=== PATIENT | female | born 1945 | race African-American/Black ===

== ENCOUNTER 2018-09-30 19:38 | Inpatient (IN) | payer MEDICARE ==
[~2018-09-30] VITALS: Ht 154.9 cm; Wt 104.4 kg
[2018-09-30] MEDS ORDERED: IV NORMAL SALINE 500ML BAG 500 ML IV SCH (20:15)
[2018-09-30 20:47] LABS: BASO % 0 % (0-3); EOS % 1 % (0-3); HEMATOCRIT 21.8 % (36.0-47.0); LYMPH # 0.7 x10^3/uL (1.0-4.8); LYMPH % 17 % (24-48); MEAN CORPUSCULAR HEMOGLOBIN 25 pg (25-35); MEAN CORPUSCULAR HGB CONC 32 g/dL (31-37); MEAN CORPUSCULAR VOLUME 79 fL (79-100); MONO # 0.3 x10^3/uL (0.0-1.1); MONO % 7 % (0-9); NEUT # 3.1 x10^3uL (1.8-7.7); NEUT % 75 % (31-73); PLATELET COUNT 191 x10^3/uL (140-400); RED BLOOD COUNT 2.75 x10^6/uL (3.50-5.40); RED CELL DISTRIBUTION WIDTH 17.4 % (11.5-14.5); WHITE BLOOD COUNT 4.2 x10^3/uL (4.0-11.0)
[2018-09-30 20:56] LABS: ALBUMIN 1.9 g/dL (3.4-5.0); ALBUMIN/GLOBULIN RATIO 0.6 (1.0-1.7); CALCIUM 6.2 mg/dL (8.5-10.1); GFR 66.1; HEMOGLOBIN 6.9 g/dL (12.0-15.5); MAGNESIUM 1.7 mg/dL (1.8-2.4); TOTAL BILIRUBIN 0.2 mg/dL (0.2-1.0)
[2018-09-30 20:58] LABS: POTASSIUM 2.6 mmol/L (3.5-5.1)
[2018-09-30] MEDS ORDERED: MAGNESIUM SULFATE 1GM 100 ML IV ONE (21:30)
[2018-09-30] MEDS ORDERED: POTASSIUM CL 20MEQ D5-0.9%NACL 1,000 ML IV ONE (21:30)
--- NOTE | 2018-09-30 22:08 | PHYS DOC ---
Past Medical History Past Medical History: Anemia, High Cholesterol, Hypertension Past Surgical History: Tonsillectomy Alcohol Use: None Drug Use: None Adult General Chief Complaint Chief Complaint: NEAR SYNCOPE HPI HPI Patient is a 73-year-old female who presents via EMS after reportedly having had syncopal episode while at [employer]. Patient states that she had been feeling hot all over and then became very dizzy and the next thing she knew she was surrounded by a lot of people in her worship. She denies having had any chest pain or shortness of breath. She denies any nausea, vomiting or diaphoresis. She states symptoms have pretty much resolved at this time. Review of Systems Review of Systems Constitutional: Denies fever or chills [] Respiratory: Denies cough or shortness of breath [] Cardiovascular: No additional information not addressed in HPI [] GI: Denies abdominal pain, nausea, vomiting, bloody stools or diarrhea [] Integument: Denies rash or skin lesions [] Neurologic: Denies headache, focal weakness or sensory changes. Positive syncopal episode. [] All other systems were reviewed and found to be within normal limits, except as documented in this note. Current Medications Current Medications Current Medications Medications (Trade) Dose Ordered Sig/Steve Start Time Stop Time Status Last Admin Dose Admin Magnesium Sulfate/ Dextrose 100 ml @ 100 mls/hr 1X ONCE 09/30/18 21:30 09/30/18 22:29 DC 09/30/18 21:10 100 MLS/HR Ondansetron HCl (Zofran) 4 mg PRN Q8HRS PRN 09/30/18 22:15 10/01/18 22:14 Potassium Chloride/Dextrose/ Sod Cl 1,000 ml @ 75 mls/hr 1X ONCE 09/30/18 21:30 10/01/18 10:49 09/30/18 21:42 75 MLS/HR Sodium Chloride 1,000 ml @ 125 mls/hr Q8H 09/30/18 22:30 10/01/18 22:29 Allergies Allergies Allergies Coded Allergies Type Severity Reaction Last Updated Verified Penicillins Allergy Intermediate 09/30/18 Yes Physical Exam Physical Exam Constitutional: Well developed, well nourished, no acute distress, non-toxic appearance. [] HENT: Normocephalic, atraumatic, bilateral external ears normal, oropharynx moist, no oral exudates, nose normal. [] Eyes: PERRLA, EOMI, conjunctiva normal, no discharge. [] Neck: Normal range of motion, no tenderness, supple, no stridor. [] Cardiovascular: Regular rate and rhythm[] Lungs & Thorax: Bilateral breath sounds clear to auscultation [] Abdomen: Bowel sounds normal, soft, no tenderness. [] Skin: Warm, dry, no erythema, no rash. [] Extremities: No tenderness, no cyanosis, no clubbing, ROM intact, no edema. [] Neurologic: Alert and oriented X 3, no focal deficits noted. [] Current Patient Data Vital Signs Vital Signs Date Time Temp Pulse Resp B/P (MAP) Pulse Ox O2 Delivery O2 Flow Rate FiO2 09/30/18 22:12 76 14 100 09/30/18 19:38 97.7 119/58 (78) Room Air 97.7 Lab Values Laboratory Tests Test 09/30/18 20:35 White Blood Count 4.2 x10^3/uL (4.0-11.0) Red Blood Count 2.75 x10^6/uL (3.50-5.40) L Hemoglobin 6.9 g/dL (12.0-15.5) *L Hematocrit 21.8 % (36.0-47.0) L Mean Corpuscular Volume 79 fL (79-100) Mean Corpuscular Hemoglobin 25 pg (25-35) Mean Corpuscular Hemoglobin Concent 32 g/dL (31-37) Red Cell Distribution Width 17.4 % (11.5-14.5) H Platelet Count 191 x10^3/uL (140-400) Neutrophils (%) (Auto) 75 % (31-73) H Lymphocytes (%) (Auto) 17 % (24-48) L Monocytes (%) (Auto) 7 % (0-9) Eosinophils (%) (Auto) 1 % (0-3) Basophils (%) (Auto) 0 % (0-3) Neutrophils # (Auto) 3.1 x10^3uL (1.8-7.7) Lymphocytes # (Auto) 0.7 x10^3/uL (1.0-4.8) L Monocytes # (Auto) 0.3 x10^3/uL (0.0-1.1) Eosinophils # (Auto) 0.0 x10^3/uL (0.0-0.7) Basophils # (Auto) 0.0 x10^3/uL (0.0-0.2) Sodium Level 147 mmol/L (136-145) H Potassium Level 2.6 mmol/L (3.5-5.1) *L Chloride Level 116 mmol/L (98-107) H Carbon Dioxide Level 20 mmol/L (21-32) L Anion Gap 11 (6-14) Blood Urea Nitrogen 21 mg/dL (7-20) H Creatinine 1.0 mg/dL (0.6-1.0) Estimated GFR (Cockcroft-Gault) 66.1 BUN/Creatinine Ratio 21 (6-20) H Glucose Level 77 mg/dL (70-99) Calcium Level 6.2 mg/dL (8.5-10.1) L Magnesium Level 1.7 mg/dL (1.8-2.4) L Total Bilirubin 0.2 mg/dL (0.2-1.0) Aspartate Amino Transferase (AST) 16 U/L (15-37) Alanine Aminotransferase (ALT) 11 U/L (14-59) L Alkaline Phosphatase 57 U/L (46-116) Total Protein 5.0 g/dL (6.4-8.2) L Albumin 1.9 g/dL (3.4-5.0) L Albumin/Globulin Ratio 0.6 (1.0-1.7) L Laboratory Tests 09/30/18 20:35 Laboratory Tests 09/30/18 20:35 EKG EKG [] Interpretation Time: EKG demonstrates normal sinus rhythm with rate of 76. Radiology/Procedures Radiology/Procedures [] Course & Med Decision Making Course & Med Decision Making Pertinent Labs and Imaging studies reviewed. (See chart for details) [] Dragon Disclaimer Dragon Disclaimer This electronic medical record was generated, in whole or in part, using a voice recognition dictation system. Departure Departure Impression: Primary Impression: Acute anemia Additional Impressions: Hypokalemia Syncope Disposition: ADMITTED INPATIENT Admitting Physician: Tamela Hagen Condition: IMPROVED Referrals: LAYLA HOGAN (PCP) Problem Qualifiers Additional Impressions: Syncope Syncope type: vasovagal syncope Qualified Codes: R55 - Syncope and collapse JOVI WOODALL Jr. DO Sep 30, 2018 22:08
[2018-09-30] MEDS ORDERED: ONDANSETRON PF 4 MG/2 ML VIAL. IV PRN (22:15)
[2018-09-30] MEDS: IV NORMAL SALINE 1000ML BAG 1,000 ML IV SCH (22:30)
[2018-09-30] MEDS ORDERED: POTASSIUM CHLORIDE 20 MEQ TABLET.ER. PO ONE (23:00)
--- NOTE | 2018-09-30 23:20 | PDOC1 ---
History and Physical Date of Admission Date of Admission DATE: 09/30/18 TIME: 23:20 Source Source: Chart review, Patient History of Present Illness History of Present Illness Ms. Rose, is a 73-year-old female admit from ER after a syncopal episode while at [employer]. Patient states that she had been feeling hot all over (it was too hot in the [employer]) and then she awoke to people standing over her. She reportedly slumped in her chair, but did not fall, no injury, no new pain. She had been feeling well, no pain or dyspnea, had been very active as usual. She denies any nausea, vomiting or diaphoresis. She states symptoms have pretty much resolved at this time, she is hoping to go home soon. her primary care is at [facility] Past Medical History Cardiovascular: HTN GI: No pertinent hx Heme/Onc: No pertinent hx Hepatobiliary: No pertinent hx Past Surgical History Past Surgical History: No pertinent history Family History Family History: Hypertension Social History Smoke: No ALCOHOL: none Current Problem List Problem List Problems Medical Problems: (1) Acute anemia Status: Acute (2) Hypokalemia Status: Acute (3) Syncope Status: Acute Current Medications Current Medications Current Medications Sodium Chloride 500 ml @ 500 mls/hr Q1H IV Last administered on 09/30/18at 20: 16; Start 09/30/18 at 20:15; Stop 09/30/18 at 20:17; Status DC Potassium Chloride/Dextrose/ Sod Cl 1,000 ml @ 75 mls/hr 1X ONCE IV Last administered on 09/30/18at 21:42; Start 09/30/18 at 21:30; Stop 10/01/18 at 10:49 Magnesium Sulfate/ Dextrose 100 ml @ 100 mls/hr 1X ONCE IV Last administered on 09/30/18at 21:10; Start 09/30/18 at 21:30; Stop 09/30/18 at 22:29; Status DC Ondansetron HCl (Zofran) 4 mg PRN Q8HRS PRN IV NAUSEA/VOMITING 1ST CHOICE; Start 09/30/18 at 22:15; Stop 10/01/18 at 22:14 Sodium Chloride 1,000 ml @ 125 mls/hr Q8H IV ; Start 09/30/18 at 22:30; Stop at 22:29 Potassium Chloride (Klor-Con) 40 meq 1X ONCE PO ; Start 09/30/18 at 23:00; Stop 09/30/18 at 23:01; Status DC Allergies Allergies: Coded Allergies: Penicillins (Verified Allergy, Intermediate, 09/30/18) ROS General: YES: Other (felt hot today); No: Chills, Night Sweats, Fatigue, Malaise, Appetite PSYCHOLOGICAL ROS: No: Anxiety, Behavioral Disorder, Concentration difficultie , Decreased libido, Depression, Disorientation, Hallucinations, Hostility, Irritablity, Memory difficulties, Mood Swings, Obsessive thoughts, Physical abuse, Sexual abuse, Sleep disturbances, Suicidal ideation, Other Eyes: No Blurry vision, No Decreased vision, No Double vision, No Dry eyes, No Excessive tearing, No Eye Pain, No Itchy Eyes, No Loss of vision, No Photophobia , No Scotomata, No Uses contacts, No Uses glasses, No Other HEENT: No: Heacaches, Visual Changes, Hearing change, Nasal congestion, Nasal discharge, Oral lesions, Sinus pain, Sore Throat, Epistaxis, Sneezing, Snoring, Tinnitus, Vertigo, Vocal changes, Other Respiratory: No: Cough, Hemoptysis, Orthopnea, Pleuritic Pain, Shortness of breath, SOB with excertion, Sputum Changes, Stridor, Tachypnea, Wheezing, Other Cardiovascular: No Chest Pain, No Palpitations, No Orthopnea, No Paroxysmal Noc. Dyspnea, No Edema, No Lt Headedness, No Other Gastrointestinal: No Nausea, No Vomiting, No Abdominal Pain, No Diarrhea, No Constipation, No Melena, No Hematochezia, No Other Genitourinary: No Dysuria, No Frequency, No Incontinence, No Hematuria, No Retention, No Discharge, No Urgency, No Pain, No Flank Pain, No Other, No , No , No , No , No , No , No Musculoskeletal: No Gait Disturbance, No Joint Pain, No Joint Stiffness, No Joint Swelling, No Muscle Pain, No Muscular Weakness, No Pain In:, No Swelling In:, No Other Neurological: No Behavorial Changes, No Bowel/Bladder ControlChng, No Confusion , No Dizziness, No Gait Disturbance, No Headaches, No Impaired Coord/balance, No Memory Loss, No Numbness/Tingling, No Seizures, No Speech Problems, No Tremors, No Visual Changes, No Weakness, No Other Skin: Yes Dry Skin; No Eczema, No Hair Changes, No Lumps, No Mole Changes, No Mottling, No Nail Changes, No Pruritus, No Rash, No Skin Lesion Changes, No Other, No Acne Physical Exam General: Alert, Oriented X3, Cooperative, No acute distress HEENT: Atraumatic, PERRLA, EOMI, Mucous membr. moist/pink Lungs: Clear to auscultation, Normal air movement Heart: S1S2, no murmurs Abdomen: Soft Extremities: No clubbing, No edema, Normal pulses Skin: No rashes, No breakdown, No significant lesion Neuro: Normal speech, Normal tone, Sensation intact Psych/Mental Status: Mental status NL, Mood NL Vitals Vitals Vital Signs Date Time Temp Pulse Resp B/P (MAP) Pulse Ox O2 Delivery O2 Flow Rate FiO2 09/30/18 22:12 76 14 100 09/30/18 19:38 97.7 119/58 (78) Room Air 97.7 Labs Labs Laboratory Tests Test 09/30/18 20:35 White Blood Count 4.2 x10^3/uL (4.0-11.0) Red Blood Count 2.75 x10^6/uL (3.50-5.40) Hemoglobin 6.9 g/dL (12.0-15.5) Hematocrit 21.8 % (36.0-47.0) Mean Corpuscular Volume 79 fL (79-100) Mean Corpuscular Hemoglobin 25 pg (25-35) Mean Corpuscular Hemoglobin Concent 32 g/dL (31-37) Red Cell Distribution Width 17.4 % (11.5-14.5) Platelet Count 191 x10^3/uL (140-400) Neutrophils (%) (Auto) 75 % (31-73) Lymphocytes (%) (Auto) 17 % (24-48) Monocytes (%) (Auto) 7 % (0-9) Eosinophils (%) (Auto) 1 % (0-3) Basophils (%) (Auto) 0 % (0-3) Neutrophils # (Auto) 3.1 x10^3uL (1.8-7.7) Lymphocytes # (Auto) 0.7 x10^3/uL (1.0-4.8) Monocytes # (Auto) 0.3 x10^3/uL (0.0-1.1) Eosinophils # (Auto) 0.0 x10^3/uL (0.0-0.7) Basophils # (Auto) 0.0 x10^3/uL (0.0-0.2) Sodium Level 147 mmol/L (136-145) Potassium Level 2.6 mmol/L (3.5-5.1) Chloride Level 116 mmol/L (98-107) Carbon Dioxide Level 20 mmol/L (21-32) Anion Gap 11 (6-14) Blood Urea Nitrogen 21 mg/dL (7-20) Creatinine 1.0 mg/dL (0.6-1.0) Estimated GFR (Cockcroft-Gault) 66.1 BUN/Creatinine Ratio 21 (6-20) Glucose Level 77 mg/dL (70-99) Calcium Level 6.2 mg/dL (8.5-10.1) Magnesium Level 1.7 mg/dL (1.8-2.4) Total Bilirubin 0.2 mg/dL (0.2-1.0) Aspartate Amino Transf (AST/SGOT) 16 U/L (15-37) Alanine Aminotransferase (ALT/SGPT) 11 U/L (14-59) Alkaline Phosphatase 57 U/L (46-116) Total Protein 5.0 g/dL (6.4-8.2) Albumin 1.9 g/dL (3.4-5.0) Albumin/Globulin Ratio 0.6 (1.0-1.7) Laboratory Tests Test 09/30/18 20:35 White Blood Count 4.2 x10^3/uL (4.0-11.0) Red Blood Count 2.75 x10^6/uL (3.50-5.40) Hemoglobin 6.9 g/dL (12.0-15.5) Hematocrit 21.8 % (36.0-47.0) Mean Corpuscular Volume 79 fL (79-100) Mean Corpuscular Hemoglobin 25 pg (25-35) Mean Corpuscular Hemoglobin Concent 32 g/dL (31-37) Red Cell Distribution Width 17.4 % (11.5-14.5) Platelet Count 191 x10^3/uL (140-400) Neutrophils (%) (Auto) 75 % (31-73) Lymphocytes (%) (Auto) 17 % (24-48) Monocytes (%) (Auto) 7 % (0-9) Eosinophils (%) (Auto) 1 % (0-3) Basophils (%) (Auto) 0 % (0-3) Neutrophils # (Auto) 3.1 x10^3uL (1.8-7.7) Lymphocytes # (Auto) 0.7 x10^3/uL (1.0-4.8) Monocytes # (Auto) 0.3 x10^3/uL (0.0-1.1) Eosinophils # (Auto) 0.0 x10^3/uL (0.0-0.7) Basophils # (Auto) 0.0 x10^3/uL (0.0-0.2) Sodium Level 147 mmol/L (136-145) Potassium Level 2.6 mmol/L (3.5-5.1) Chloride Level 116 mmol/L (98-107) Carbon Dioxide Level 20 mmol/L (21-32) Anion Gap 11 (6-14) Blood Urea Nitrogen 21 mg/dL (7-20) Creatinine 1.0 mg/dL (0.6-1.0) Estimated GFR (Cockcroft-Gault) 66.1 BUN/Creatinine Ratio 21 (6-20) Glucose Level 77 mg/dL (70-99) Calcium Level 6.2 mg/dL (8.5-10.1) Magnesium Level 1.7 mg/dL (1.8-2.4) Total Bilirubin 0.2 mg/dL (0.2-1.0) Aspartate Amino Transf (AST/SGOT) 16 U/L (15-37) Alanine Aminotransferase (ALT/SGPT) 11 U/L (14-59) Alkaline Phosphatase 57 U/L (46-116) Total Protein 5.0 g/dL (6.4-8.2) Albumin 1.9 g/dL (3.4-5.0) Albumin/Globulin Ratio 0.6 (1.0-1.7) VTE Prophylaxis Ordered VTE Prophylaxis Devices: No VTE Pharmacological Prophylaxi: Yes Assessment/Plan Assessment/Plan syncope while seated, no fall anemia, poss symptomatic, check retic count and iron in AM, type and cross critical hypokalemia, PO and repeat in AM replace Mag obesity, BMI 43, with severe malnutrition, check nutrition consult, check UA for protein, admit obs, stephenie, HECTOR BRIDGES MD Sep 30, 2018 23:20
[2018-09-30] MEDS ORDERED: MAGNESIUM SULFATE 2GM 50 ML IV ONE (23:45)
[2018-09-30 23:55] VITALS: BP 130/64
[2018-10-01] VITALS (7 sets, daily range): BP systolic 121–149; BP diastolic 49–65
--- NOTE | 2018-10-01 02:05 | NUR ---
Pt unable to tell the names of the medication she is currently taking, she also get them mailed to her house. Pt gave her doctor's office phone number to call in the morning to get the list from them, phone number [phone].
--- NOTE | 2018-10-01 04:24 | NUR ---
Verified order around 0100 regarding pt hgb, to Dr. Hagen, no blood transfusion at this time ordered, will continue to monitor pt.
--- NOTE | 2018-10-01 06:19 | EKG ---
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
[2018-10-01] MEDS: IV NORMAL SALINE 1000ML BAG 1,000 ML IV SCH (06:30)
[2018-10-01] MEDS ORDERED: POTASSIUM CHLORIDE 20 MEQ TABLET.ER. PO SCH ×2 (08:00)
[2018-10-01 08:01] LABS: BILIRUBIN,URINE NEGATIVE (NEG); CLARITY,URINE CLEAR; COLOR,URINE YELLOW; NITRITE,URINE NEGATIVE (NEG); PROTEIN,URINE NEGATIVE (NEG-TRACE); UROBILINOGEN,URINE 0.2 mg/dL (0.2 mg/dL)
[2018-10-01 08:21] LABS: SQUAMOUS EPITHELIAL CELL,UR MOD /LPF
[2018-10-01 08:22] LABS: BACTERIA,URINE MANY /HPF (0-FEW); HYALINE CASTS, URINE FEW /HPF; RBC,URINE OCC /HPF (0-2)
[2018-10-01 09:27] LABS: BASO % 0 % (0-3); EOS # 0.1 x10^3/uL (0.0-0.7); EOS % 1 % (0-3); LYMPH # 1.4 x10^3/uL (1.0-4.8); LYMPH % 24 % (24-48); MEAN CORPUSCULAR HEMOGLOBIN 24 pg (25-35); MEAN CORPUSCULAR HGB CONC 31 g/dL (31-37); MEAN CORPUSCULAR VOLUME 78 fL (79-100); MONO # 0.4 x10^3/uL (0.0-1.1); MONO % 7 % (0-9); NEUT % 69 % (31-73); PLATELET COUNT 315 x10^3/uL (140-400); RED BLOOD COUNT 4.33 x10^6/uL (3.50-5.40); RED CELL DISTRIBUTION WIDTH 17.4 % (11.5-14.5); RETIC COUNT 0.9 % (0.5-2.5); WHITE BLOOD COUNT 5.8 x10^3/uL (4.0-11.0)
[2018-10-01 09:33] LABS: HEMOGLOBIN 10.5 g/dL (12.0-15.5)
[2018-10-01 10:43] LABS: CALCIUM 8.6 mg/dL (8.5-10.1); CREATININE 1.4 mg/dL (0.6-1.0); GFR 44.9
[2018-10-01 11:21] LABS: MAGNESIUM 3.1 mg/dL (1.8-2.4)
--- NOTE | 2018-10-01 11:40 | PDOC2 ---
KRYSTIN MICHEL LPN MEDICAL ASSISTANT 10/01/18 1140: CARDIAC CONSULT DATE OF CONSULT Date of Consult DATE: 10/01/18 TIME: 11:13 REASON FOR CONSULT Reason for Consult: syncope, hypokalemia REFERRING PHYSICIAN Referring Physician: Hieu SOURCE Source: Chart review, Patient HISTORY OF PRESENT ILLNESS HISTORY OF PRESENT ILLNESS This is a pleasant 73 yo female admitted for complains of passing out. She took her BP meds yesterday AM. SHe did not drink much fluids yesterday. She attended [employer] yesterday evening. She was sitting then she started having blurred vision. No chest pain, nausea, palpitations, vertigo, tinnitus. She finally leaned to the side she was told and passed out and the next thing she remembered is waking up with people looking at her. No vomiting or flushed feeling. Denies any prior exertional CP or SOA. No changes to her activity tolerance. She does take iron and has dark stools but no obvious blood. Denies any hx of CAD nor arrhythmias and no prior syncopal spells. She has hiatal hernia due to for surgery in october. PAST MEDICAL HISTORY Cardiovascular: HTN, Hyperlipidemia Pulmonary: Asthma CENTRAL NERVOUS SYSTEM: Other (No pertinent history) GI: GERD, Other (hiatal hernia; colon polyps) Heme/Onc: Anemia NOS Hepatobiliary: No pertinent hx Psych: No pertinent hx Musculoskeletal: Osteoarthritis Rheumatologic: No pertinent hx Infectious disease: No pertinent hx ENT: No pertinent hx Renal/: No pertinent hx Endocrine: No pertinent hx Dermatology: No pertinent hx FAMILY HISTORY Family History: Hypertension SOCIAL HISTORY Smoke: No ALCOHOL: none Drugs: None Lives: with Family CURRENT MEDICATIONS CURRENT MEDICATIONS Current Medications Medications (Trade) Dose Ordered Sig/Steve Route PRN Reason Start Time Stop Time Status Last Admin Dose Admin Sodium Chloride 500 ml @ 500 mls/hr Q1H IV 09/30/18 20:15 09/30/18 20:17 DC 09/30/18 20:16 Potassium Chloride/Dextrose/ Sod Cl 1,000 ml @ 75 mls/hr 1X ONCE IV 09/30/18 21:30 10/01/18 10:49 DC 09/30/18 21:42 Magnesium Sulfate/ Dextrose 100 ml @ 100 mls/hr 1X ONCE IV 09/30/18 21:30 09/30/18 22:29 DC 09/30/18 21:10 Potassium Chloride (Klor-Con) 40 meq 1X ONCE PO 09/30/18 23:00 09/30/18 23:01 DC 10/01/18 01:11 Magnesium Sulfate 50 ml @ 25 mls/hr 1X ONCE IV 09/30/18 23:45 10/01/18 01:44 DC 10/01/18 01:31 Potassium Chloride (Klor-Con) 40 meq DAILYWBKFT PO 10/01/18 08:00 10/01/18 08:36 ALLERGIES ALLERGIES: Coded Allergies: Penicillins (Verified Allergy, Intermediate, 09/30/18) ROS Review of System 14 point ROS evaluated with pertinent positives noted per HPI PHYSICAL EXAM General: Alert, Oriented X3, Cooperative, No acute distress HEENT: Atraumatic, Mucous membr. moist/pink Lungs: Clear to auscultation, Normal air movement Heart: Regular rate (SR), Normal S1, Normal S2, Other (2/6 systolic murmur to PEGGY border) Abdomen: Soft, No tenderness Extremities: No cyanosis, No edema Skin: No breakdown, No significant lesion Neuro: Normal speech, Sensation intact Psych/Mental Status: Mental status NL, Mood NL MUSCULOSKELETAL: Osteoarthritic changes both hands VITALS VITALS Vital Signs Date Time Temp Pulse Resp B/P (MAP) Pulse Ox O2 Delivery O2 Flow Rate FiO2 10/01/18 08:00 Room Air 10/01/18 07:15 98.2 73 20 125/50 (75) 96 98.2 LABS Lab: Laboratory Tests Test 09/30/18 20:35 10/01/18 06:24 10/01/18 07:22 10/01/18 08:45 White Blood Count 4.2 x10^3/uL (4.0-11.0) 5.8 x10^3/uL (4.0-11.0) Red Blood Count 2.75 x10^6/uL (3.50-5.40) 4.33 x10^6/uL (3.50-5.40) Hemoglobin 6.9 g/dL (12.0-15.5) 10.5 g/dL (12.0-15.5) Hematocrit 21.8 % (36.0-47.0) 34.0 % (36.0-47.0) Mean Corpuscular Volume 79 fL (79-100) 78 fL (79-100) Mean Corpuscular Hemoglobin 25 pg (25-35) 24 pg (25-35) Mean Corpuscular Hemoglobin Concent 32 g/dL (31-37) 31 g/dL (31-37) Red Cell Distribution Width 17.4 % (11.5-14.5) 17.4 % (11.5-14.5) Platelet Count 191 x10^3/uL (140-400) 315 x10^3/uL (140-400) Neutrophils (%) (Auto) 75 % (31-73) 69 % (31-73) Lymphocytes (%) (Auto) 17 % (24-48) 24 % (24-48) Monocytes (%) (Auto) 7 % (0-9) 7 % (0-9) Eosinophils (%) (Auto) 1 % (0-3) 1 % (0-3) Basophils (%) (Auto) 0 % (0-3) 0 % (0-3) Neutrophils # (Auto) 3.1 x10^3uL (1.8-7.7) 4.0 x10^3uL (1.8-7.7) Lymphocytes # (Auto) 0.7 x10^3/uL (1.0-4.8) 1.4 x10^3/uL (1.0-4.8) Monocytes # (Auto) 0.3 x10^3/uL (0.0-1.1) 0.4 x10^3/uL (0.0-1.1) Eosinophils # (Auto) 0.0 x10^3/uL (0.0-0.7) 0.1 x10^3/uL (0.0-0.7) Basophils # (Auto) 0.0 x10^3/uL (0.0-0.2) 0.0 x10^3/uL (0.0-0.2) Sodium Level 147 mmol/L (136-145) 143 mmol/L (136-145) Potassium Level 2.6 mmol/L (3.5-5.1) 5.0 mmol/L (3.5-5.1) Chloride Level 116 mmol/L (98-107) 109 mmol/L (98-107) Carbon Dioxide Level 20 mmol/L (21-32) 24 mmol/L (21-32) Anion Gap 11 (6-14) 10 (6-14) Blood Urea Nitrogen 21 mg/dL (7-20) 27 mg/dL (7-20) Creatinine 1.0 mg/dL (0.6-1.0) 1.4 mg/dL (0.6-1.0) Estimated GFR (Cockcroft-Gault) 66.1 44.9 BUN/Creatinine Ratio 21 (6-20) Glucose Level 77 mg/dL (70-99) 106 mg/dL (70-99) Calcium Level 6.2 mg/dL (8.5-10.1) 8.6 mg/dL (8.5-10.1) Magnesium Level 1.7 mg/dL (1.8-2.4) Total Bilirubin 0.2 mg/dL (0.2-1.0) Aspartate Amino Transf (AST/SGOT) 16 U/L (15-37) Alanine Aminotransferase (ALT/SGPT) 11 U/L (14-59) Alkaline Phosphatase 57 U/L (46-116) Total Protein 5.0 g/dL (6.4-8.2) Albumin 1.9 g/dL (3.4-5.0) Albumin/Globulin Ratio 0.6 (1.0-1.7) Urine Collection Type Unknown Urine Color Yellow Urine Clarity Clear Urine pH 5.0 Urine Specific [place] 1.025 Urine Protein Negative mg/dL (NEG-TRACE) Urine Glucose (UA) Negative mg/dL (NEG) Urine Ketones (Stick) Negative mg/dL (NEG) Urine Blood Negative (NEG) Urine Nitrite Negative (NEG) Urine Bilirubin Negative (NEG) Urine Urobilinogen Dipstick 0.2 mg/dL (0.2 mg/dL) Urine Leukocyte Esterase Small (NEG) Urine RBC Occ /HPF (0-2) Urine WBC 1-4 /HPF (0-4) Urine Squamous Epithelial Cells Mod /LPF Urine Bacteria Many /HPF (0-FEW) Urine Hyaline Casts Few /HPF Urine Mucus Marked /LPF Ionized Calcium 1.19 mmol/L (1.13-1.32) Iron Level 37 ug/dL (50-170) Total Iron Binding Capacity 240 ug/dL (250-450) Iron Saturation 15 % (15-34) Reticulocyte Count (auto) 0.9 % (0.5-2.5) ASSESSMENT/PLAN ASSESSMENT/PLAN 1. Microcytic anemia: false initial Hgb at 6.9, redraw noted at 10.5 without transfusion 2. Hypokalemia/hypocalcemia/hypomagnesemia: corrected 3. LETY: dehydration 4. Syncope: suspect vasovagal with associated. No past Hx. 5. Morbid obesity 6. HTN: controlled 7. HLP 8. Hx of colonoscopy and polypectomy in 06/2018 Recommendations 1. TTE, IVF 2. Orthostatic readings. no rhythm abnormalities. Await echo, continue home BP regimen. encouraged hydration adequacy. CHRISTIE BONNER MD 10/01/18 5107: CARDIAC CONSULT ASSESSMENT/PLAN ASSESSMENT/PLAN Pt. seen and examined. Agree with above Assistant Accounting Manager note. 73 y.o with vasovagal syncope, She was clearly hot and dehydrated. Supportive care. Ok to DC. Pls call with questions. KRYSTIN MICHEL APRN Oct 01, 2018 11:40 CHRISTIE BONNER MD Oct 01, 2018 23:07
[2018-10-01] MEDS ORDERED: IV NORMAL SALINE 1000ML BAG 1,000 ML IV ONE (11:45)
--- NOTE | 2018-10-01 14:48 | PDOC3 ---
Discharge Summary Visit Information Date of Admission: Sep 30, 2018 Date of Discharge: Oct 01, 2018 Final Diagnosis syncope lab error, thought to have critical hypokalemia and anemia obesity, BMI 43 CKD 2-3 htn Problems Medical Problems: (1) Acute anemia Status: Acute (2) Hypokalemia Status: Acute (3) Syncope Status: Acute Brief Hospital Course Allergies Allergies Coded Allergies Type Severity Reaction Last Updated Verified Penicillins Allergy Intermediate 09/30/18 Yes Vital Signs Vital Signs Date Time Temp Pulse Resp B/P (MAP) Pulse Ox O2 Delivery O2 Flow Rate FiO2 10/01/18 12:03 78 149/63 (91) 10/01/18 11:12 18 96 Room Air 10/01/18 07:15 98.2 98.2 Lab Results Laboratory Tests Test 09/30/18 20:35 10/01/18 06:24 10/01/18 07:22 10/01/18 08:45 White Blood Count 4.2 x10^3/uL (4.0-11.0) 5.8 x10^3/uL (4.0-11.0) Red Blood Count 2.75 x10^6/uL (3.50-5.40) 4.33 x10^6/uL (3.50-5.40) Hemoglobin 6.9 g/dL (12.0-15.5) 10.5 g/dL (12.0-15.5) Hematocrit 21.8 % (36.0-47.0) 34.0 % (36.0-47.0) Mean Corpuscular Volume 79 fL (79-100) 78 fL (79-100) Mean Corpuscular Hemoglobin 25 pg (25-35) 24 pg (25-35) Mean Corpuscular Hemoglobin Concent 32 g/dL (31-37) 31 g/dL (31-37) Red Cell Distribution Width 17.4 % (11.5-14.5) 17.4 % (11.5-14.5) Platelet Count 191 x10^3/uL (140-400) 315 x10^3/uL (140-400) Neutrophils (%) (Auto) 75 % (31-73) 69 % (31-73) Lymphocytes (%) (Auto) 17 % (24-48) 24 % (24-48) Monocytes (%) (Auto) 7 % (0-9) 7 % (0-9) Eosinophils (%) (Auto) 1 % (0-3) 1 % (0-3) Basophils (%) (Auto) 0 % (0-3) 0 % (0-3) Neutrophils # (Auto) 3.1 x10^3uL (1.8-7.7) 4.0 x10^3uL (1.8-7.7) Lymphocytes # (Auto) 0.7 x10^3/uL (1.0-4.8) 1.4 x10^3/uL (1.0-4.8) Monocytes # (Auto) 0.3 x10^3/uL (0.0-1.1) 0.4 x10^3/uL (0.0-1.1) Eosinophils # (Auto) 0.0 x10^3/uL (0.0-0.7) 0.1 x10^3/uL (0.0-0.7) Basophils # (Auto) 0.0 x10^3/uL (0.0-0.2) 0.0 x10^3/uL (0.0-0.2) Sodium Level 147 mmol/L (136-145) 143 mmol/L (136-145) Potassium Level 2.6 mmol/L (3.5-5.1) 5.0 mmol/L (3.5-5.1) Chloride Level 116 mmol/L (98-107) 109 mmol/L (98-107) Carbon Dioxide Level 20 mmol/L (21-32) 24 mmol/L (21-32) Anion Gap 11 (6-14) 10 (6-14) Blood Urea Nitrogen 21 mg/dL (7-20) 27 mg/dL (7-20) Creatinine 1.0 mg/dL (0.6-1.0) 1.4 mg/dL (0.6-1.0) Estimated GFR (Cockcroft-Gault) 66.1 44.9 BUN/Creatinine Ratio 21 (6-20) Glucose Level 77 mg/dL (70-99) 106 mg/dL (70-99) Calcium Level 6.2 mg/dL (8.5-10.1) 8.6 mg/dL (8.5-10.1) Magnesium Level 1.7 mg/dL (1.8-2.4) 3.1 mg/dL (1.8-2.4) Total Bilirubin 0.2 mg/dL (0.2-1.0) Aspartate Amino Transf (AST/SGOT) 16 U/L (15-37) Alanine Aminotransferase (ALT/SGPT) 11 U/L (14-59) Alkaline Phosphatase 57 U/L (46-116) Total Protein 5.0 g/dL (6.4-8.2) Albumin 1.9 g/dL (3.4-5.0) Albumin/Globulin Ratio 0.6 (1.0-1.7) Urine Collection Type Unknown Urine Color Yellow Urine Clarity Clear Urine pH 5.0 Urine Specific [place] 1.025 Urine Protein Negative mg/dL (NEG-TRACE) Urine Glucose (UA) Negative mg/dL (NEG) Urine Ketones (Stick) Negative mg/dL (NEG) Urine Blood Negative (NEG) Urine Nitrite Negative (NEG) Urine Bilirubin Negative (NEG) Urine Urobilinogen Dipstick 0.2 mg/dL (0.2 mg/dL) Urine Leukocyte Esterase Small (NEG) Urine RBC Occ /HPF (0-2) Urine WBC 1-4 /HPF (0-4) Urine Squamous Epithelial Cells Mod /LPF Urine Bacteria Many /HPF (0-FEW) Urine Hyaline Casts Few /HPF Urine Mucus Marked /LPF Urine Random Total Protein 11.1 mg/dL (Not Estab.) Ionized Calcium 1.19 mmol/L (1.13-1.32) Iron Level 37 ug/dL (50-170) Total Iron Binding Capacity 240 ug/dL (250-450) Iron Saturation 15 % (15-34) Reticulocyte Count (auto) 0.9 % (0.5-2.5) Laboratory Tests Test 09/30/18 20:35 10/01/18 06:24 10/01/18 07:22 10/01/18 08:45 White Blood Count 4.2 x10^3/uL (4.0-11.0) 5.8 x10^3/uL (4.0-11.0) Red Blood Count 2.75 x10^6/uL (3.50-5.40) 4.33 x10^6/uL (3.50-5.40) Hemoglobin 6.9 g/dL (12.0-15.5) 10.5 g/dL (12.0-15.5) Hematocrit 21.8 % (36.0-47.0) 34.0 % (36.0-47.0) Mean Corpuscular Volume 79 fL (79-100) 78 fL (79-100) Mean Corpuscular Hemoglobin 25 pg (25-35) 24 pg (25-35) Mean Corpuscular Hemoglobin Concent 32 g/dL (31-37) 31 g/dL (31-37) Red Cell Distribution Width 17.4 % (11.5-14.5) 17.4 % (11.5-14.5) Platelet Count 191 x10^3/uL (140-400) 315 x10^3/uL (140-400) Neutrophils (%) (Auto) 75 % (31-73) 69 % (31-73) Lymphocytes (%) (Auto) 17 % (24-48) 24 % (24-48) Monocytes (%) (Auto) 7 % (0-9) 7 % (0-9) Eosinophils (%) (Auto) 1 % (0-3) 1 % (0-3) Basophils (%) (Auto) 0 % (0-3) 0 % (0-3) Neutrophils # (Auto) 3.1 x10^3uL (1.8-7.7) 4.0 x10^3uL (1.8-7.7) Lymphocytes # (Auto) 0.7 x10^3/uL (1.0-4.8) 1.4 x10^3/uL (1.0-4.8) Monocytes # (Auto) 0.3 x10^3/uL (0.0-1.1) 0.4 x10^3/uL (0.0-1.1) Eosinophils # (Auto) 0.0 x10^3/uL (0.0-0.7) 0.1 x10^3/uL (0.0-0.7) Basophils # (Auto) 0.0 x10^3/uL (0.0-0.2) 0.0 x10^3/uL (0.0-0.2) Sodium Level 147 mmol/L (136-145) 143 mmol/L (136-145) Potassium Level 2.6 mmol/L (3.5-5.1) 5.0 mmol/L (3.5-5.1) Chloride Level 116 mmol/L (98-107) 109 mmol/L (98-107) Carbon Dioxide Level 20 mmol/L (21-32) 24 mmol/L (21-32) Anion Gap 11 (6-14) 10 (6-14) Blood Urea Nitrogen 21 mg/dL (7-20) 27 mg/dL (7-20) Creatinine 1.0 mg/dL (0.6-1.0) 1.4 mg/dL (0.6-1.0) Estimated GFR (Cockcroft-Gault) 66.1 44.9 BUN/Creatinine Ratio 21 (6-20) Glucose Level 77 mg/dL (70-99) 106 mg/dL (70-99) Calcium Level 6.2 mg/dL (8.5-10.1) 8.6 mg/dL (8.5-10.1) Magnesium Level 1.7 mg/dL (1.8-2.4) 3.1 mg/dL (1.8-2.4) Total Bilirubin 0.2 mg/dL (0.2-1.0) Aspartate Amino Transf (AST/SGOT) 16 U/L (15-37) Alanine Aminotransferase (ALT/SGPT) 11 U/L (14-59) Alkaline Phosphatase 57 U/L (46-116) Total Protein 5.0 g/dL (6.4-8.2) Albumin 1.9 g/dL (3.4-5.0) Albumin/Globulin Ratio 0.6 (1.0-1.7) Urine Collection Type Unknown Urine Color Yellow Urine Clarity Clear Urine pH 5.0 Urine Specific [place] 1.025 Urine Protein Negative mg/dL (NEG-TRACE) Urine Glucose (UA) Negative mg/dL (NEG) Urine Ketones (Stick) Negative mg/dL (NEG) Urine Blood Negative (NEG) Urine Nitrite Negative (NEG) Urine Bilirubin Negative (NEG) Urine Urobilinogen Dipstick 0.2 mg/dL (0.2 mg/dL) Urine Leukocyte Esterase Small (NEG) Urine RBC Occ /HPF (0-2) Urine WBC 1-4 /HPF (0-4) Urine Squamous Epithelial Cells Mod /LPF Urine Bacteria Many /HPF (0-FEW) Urine Hyaline Casts Few /HPF Urine Mucus Marked /LPF Urine Random Total Protein 11.1 mg/dL (Not Estab.) Ionized Calcium 1.19 mmol/L (1.13-1.32) Iron Level 37 ug/dL (50-170) Total Iron Binding Capacity 240 ug/dL (250-450) Iron Saturation 15 % (15-34) Reticulocyte Count (auto) 0.9 % (0.5-2.5) Brief Hospital Course Ms. Rose, is a 73-year-old female admit from ER after a syncopal episode while at [employer] her primary care is at [facility] CV eval, tele for 23 hours, echo was OK, CV consult, likely vagal syncope, she reported everyone was uncomfortable with the heat level in the room (toohot) and she just slumped down in her chair, and that she probably didnt drink enough fluid, usually has 8 glassed H20 daily Discharge Information Condition at Discharge: Improved Follow Up: Weeks Disposition/Orders: D/C to Home No Active Prescriptions or Reported Meds Patient Instructions Patient Instructions face to face and discussed with CV consult HECTOR BRIDGES MD Oct 01, 2018 14:48
--- NOTE | 2018-10-01 15:51 | CARD ---
MR#: [id number] Date of Study: 10/01/2018 Ordering Physician: KRYSTIN MICHEL, Referring Physician: HECTOR BRIDGES Tech: Isabel Burch RDCS APPROVED REPORT EXAM: Two-dimensional and M-mode echocardiogram with Doppler and color Doppler. Other Information Quality : AverageHR: 87bpm Rhythm : NSR INDICATION Syncope 2D DIMENSIONS RVDd2.7 (2.9-3.5cm)Left Atrium(2D)4.0 (1.6-4.0cm) IVSd1.0 (0.7-1.1cm)Aortic Root(2D)2.8 (2.0-3.7cm) LVDd4.3 (3.9-5.9cm)LVOT Diameter2.0 (1.8-2.4cm) PWd0.9 (0.7-1.1cm)LVDs2.2 (2.5-4.0cm) FS (%) 47.2 %SV63.9 ml LVEF(%)79.0 (>50%) M-Mode DIMENSIONS Left Atrium(MM)4.36 (2.5-4.0cm)Aortic Root3.09 (2.2-3.7cm) Aortic Valve AoV Peak Jeffrey.171.0cm/sAoV VTI36.7cm AO Peak GR.11.7mmHgLVOT Peak Jeffrey.106.2cm/s AO Mean GR.5mmHgAVA (VMAX)2.04cm2 KENIA (VTI)2.00cm2 Mitral Valve MV E Tlvcttdu117.0cm/sMV DECEL [id number] MV A Iksxpbup48.1cm/sE/A Ratio1.7 MV A Pfxjzump415ne Pulmonary Valve PV Peak Ehlcrpvj317.4cm/s Tricuspid Valve TR P. Dhghsudj917op/sRAP DSAMQZBJ9meJx TR Peak Gr.63vrInWJBE93bdQr Pulmonary Vein S1 Xlgxhtvz62.3cm/sD2 Ddxaafoq79.3cm/s PVa onhtgotu75agbs LEFT VENTRICLE The left ventricle is normal size. There is normal left ventricular wall thickness. The left ventricl e is hyperdynamic. The Ejection Fraction is >70%. There is normal LV segmental wall motion. Transmitr al Doppler flow pattern is Grade II-pseudonormal filling dynamics. RIGHT VENTRICLE The right ventricle is normal size. There is normal right ventricular wall thickness. The right ventr icular systolic function is normal. ATRIA The left atrium is borderline dilated. The right atrium size is normal. The interatrial septum is int act with no evidence for an atrial septal defect or patent foramen ovale as noted on 2-D or Doppler i maging. AORTIC VALVE The aortic valve is normal in structure and function. The aortic valve is trileaflet. Doppler and Col or Flow revealed no significant aortic regurgitation. There is no significant aortic valvular stenosi s. There is no aortic valvular vegetation. MITRAL VALVE The mitral valve is normal in structure and function. There is no evidence of mitral valve prolapse. There is no mitral valve stenosis. Doppler and Color-flow revealed trace mitral regurgitation. TRICUSPID VALVE The tricuspid valve is normal in structure and function. Doppler and Color Flow revealed trace tricus pid regurgitation. The PA pressure was estimated at 36 mmHg. There is no tricuspid valve prolapse or vegetation. There is no tricuspid valve stenosis. PULMONIC VALVE Doppler and Color Flow revealed trace to mild pulmonic valvular regurgitation. There is no pulmonic v alvular stenosis. GREAT VESSELS The aortic root is normal in size. The ascending aorta is normal in size. The IVC is normal in size a nd collapses >50% with inspiration. PERICARDIAL EFFUSION There is no evidence of significant pericardial effusion. Critical Notification Critical Value: No <Conclusion> The left ventricle is hyperdynamic. The Ejection Fraction is >70%. There is normal LV segmental wall motion. Doppler and Color Flow revealed trace tricuspid regurgitation. The PA pressure was estimated at 36 mm Hg. Signed by : Harpreet Johnson, Electronically Approved : 10/01/2018 15:51:02
--- NOTE | 2018-10-01 16:40 | NUR ---
Discharge Note: JESUSITA ALMAGUER [facility] Discharge instructions and discharge home medications reviewed with Patient and a copy given. All questions have been answered and understanding verbalized. The following instructions and handouts were given: Diet, activity, medication list and follow up instructions provided to patient. Discontinued lines and drains: Peripheral IV discontinued and catheter intact. Patient discharged to Home or Self Care with Friend via Wheelchair
== END 2018-10-01 16:05 | disposition home or self-care (01) | DRG 682 ==
LOC: ER 19:38 → 6 SOUTH 21:58
PROVIDERS: ADMIT Internal Medicine; ATTEND Internal Medicine
DX: N17.9 Acute kidney failure, unspecified (principal); E43 Unspecified severe protein-calorie malnutrition; Z68.41 Body mass index [BMI] 40.0-44.9, adult; D50.9 Iron deficiency anemia, unspecified; E66.01 Morbid (severe) obesity due to excess calories; E78.00 Pure hypercholesterolemia, unspecified; E78.5 Hyperlipidemia, unspecified; E83.42 Hypomagnesemia; M19.90 Unspecified osteoarthritis, unspecified site; E83.51 Hypocalcemia; E86.0 Dehydration; E87.6 Hypokalemia; I12.9 Hypertensive chronic kidney disease with stage 1 through stage 4 chronic kidney disease, or unspecified chronic kidney disease; J45.909 Unspecified asthma, uncomplicated; K21.9 Gastro-esophageal reflux disease without esophagitis; N18.3 Chronic kidney disease, stage 3 (moderate); Z82.49 Family history of ischemic heart disease and other diseases of the circulatory system; Z86.010 Personal history of colon polyps; Z88.0 Allergy status to penicillin
CPT/HCPCS: 36415; 80048; 80053; 81001; 82310; 83540; 83550; 83735; 84156; 85025; 85045; 86850; 86900; 86901; 87086; 93005; 93306; 96361; 96365; J3475; J7030; J7040; 99285-25

== ENCOUNTER → 2019-01-25 | Outpatient (CLI) | payer MEDICARE ==
[2018-10-01 15:15] VITALS: BP 126/58
--- NOTE | 2019-01-25 10:27 | EEG ---
DATE OF SERVICE: 01/25/2019 EEG NUMBER: This is EEG number [id number] performed on 01/25/2019. OBJECTIVE: The patient is a 73-year-old female with altered mental status. DESCRIPTION: This is a digital study. Electrodes are placed according to the international 10-20 system. Bipolar and referential montages are available. Activation procedures typically include hyperventilation and intermittent photic stimulation. INTERPRETATION: The waking background consists of 8 Hz, 50-100 microvolt activity, symmetrically distributed over parietooccipital regions and reactive to eye opening. Hyperventilation and intermittent photic stimulation are noncontributory. Stage 1 sleep is achieved with normal electroencephalogram patterns. IMPRESSION: This electroencephalogram with the patient awake and asleep is within normal limits. There is no focal, paroxysmal, or epileptiform activity. Thank you for letting us help with the patient's care. ANDIE SUAREZ MD DR: OSKAR/tyler JOB#: [id number] / [id number] HECTOR Meyer MD [facility], [facility]
== END | disposition home or self-care (01) ==
LOC: RT 09:20
PROVIDERS: ATTEND Psychiatry & Neurology Neurology
DX: R41.82 Altered mental status, unspecified (principal)
CPT/HCPCS: 95816